=== PATIENT | male | born 1940 | race Caucasian/White ===

== ENCOUNTER 2017-03-14 10:17 | Emergency (ER) | payer OTHER ==
[2017-03-14 10:27] VITALS: BMI 31.0
[2017-03-14] MEDS ORDERED: ASPIRIN 81 MG CHEWABLE TABLETS PO ONE (10:44)
--- NOTE | 2017-03-14 10:44 | PDOC ---
History of Present Illness - General History Source: Patient Exam Limitations: No Limitations - History of Present Illness Initial Comments: 03/14/17 11:15 The patient is a 77 year old male with significant past medical history of hypertension and hyperlipidemia who presents to the ED for 4 days of worsening cough with wheezing and chest congestion. Patient reports he recently returned from [place] (via plane) yesterday. States he initially developed some nasal congestion and coughing 4 days ago and now has cough with wheezing and chest congestion. States his symptoms are consistent with his previous bronchitis and has been treated with nebulizer and prednisone in the past. Denies history of asthma or COPD. Denies fever, chills, diaphoresis, chest pain, jaw pain, shoulder pain, arm pain, palpitations, nausea, or vomiting. Denies abdominal pain or diarrhea. Patient admits to smoking cigars in the past. Allergies: NKDA Social History: Former cigar smoker. Past Surgical History: fatty tissue cyst removed left leg PCP: Dr. Chirag Mejia <Catherine Robles - Last Filed: 03/14/17 11:15> <Lenin Crawley - Last Filed: 03/14/17 13:42> - General Chief Complaint: Chest Pain Stated Complaint: CHEST PAIN Time Seen by Provider: 03/14/17 10:32 Past History <Catherine Robles - Last Filed: 03/14/17 11:15> - Past Medical History HTN: Yes Hypercholesterolemia: Yes Suicide Attempt (Hx): No - Immunization History Immunization Up to Date: Yes - Psycho/Social/Smoking Cessation Hx Anxiety: No Suicidal Ideation: No Smoking Status: No Smoking History: Never smoked Have you smoked in the past 12 months: No Number of Cigarettes Smoked Daily: 0 Information on smoking cessation initiated: No Hx Alcohol Use: No Substance Use Type: Alcohol <Lenin Crawley - Last Filed: 03/14/17 13:42> - Past Medical History Allergies/Adverse Reactions: Allergies Allergy/AdvReac Type Severity Reaction Status Date / Time No Known Allergies Allergy Verified 03/14/17 10:28 Home Medications: Ambulatory Orders Atorvastatin Ca [Lipitor] 20 mg PO HS 02/24/13 Aspirin Coated [Ecotrin -] 81 mg PO DAILY #30 tablet.ec 10/19/14 Dutasteride [Avodart] 0.5 mg PO DAILY 02/24/15 Tamsulosin HCl 0.4 mg PO DAILY 02/24/15 Albuterol Sulfate Inhaler - [Ventolin HFA Inhaler -] 1 - 2 inh PO QID PRN #1 inhaler 03/14/17 Azithromycin [Zithromax 250mg Tablets -] 250 mg PO UTDICT #6 tab 03/14/17 Methylprednisolone [Medrol Dose Marc] 4 mg PO ASDIR #21 tablet 03/14/17 Review of Systems - Review of Systems Constitutional: No: Chills, Fever HEENTM: Yes: Nose Congestion Respiratory: Yes: Cough Cardiac (ROS): No: Chest Pain, Edema, Lightheadedness ABD/GI: No: Vomiting All Other Systems: Reviewed and Negative <Lenin Crawley - Last Filed: 03/14/17 13:42> *Physical Exam - Vital Signs Last Vital Signs Temp Pulse Resp BP Pulse Ox 98.4 F 56 L 18 144/70 97 03/14/17 10:24 03/14/17 10:24 03/14/17 10:24 03/14/17 10:24 03/14/17 10:24 - Physical Exam Comments: 03/14/17 11:15 GENERAL: The patient is awake, alert, and fully oriented, in no acute distress. HEAD: Normal with no signs of trauma. EYES: Pupils equal, round and reactive to light, extraocular movements intact, sclera anicteric, conjunctiva clear with no pallor. ENT: Ears normal, nares patent, oropharynx clear without exudates. Moist mucous membranes. NECK: Normal range of motion, supple without lymphadenopathy, JVD, or masses. LUNGS: No respiratory distress. Coarse breath sounds at the right base with scant and expiratory wheezing throughout. Good air entry. No accessory muscle use. No conversation dyspnea. HEART: Regular rate and rhythm, normal S1 and S2 without murmur or rub. ABDOMEN: Soft/nontender/nondistended. BS wnl. No guarding or rebound. No palpable masses. No hepatosplenomegaly. EXTREMITIES: Normal range of motion. Trace pretibial ankle edema bilaterally. No calf tenderness. No clubbing or cyanosis. No cords, erythema, or tenderness. NEUROLOGICAL: Cranial nerves II through XII grossly intact. Normal speech, normal gait. PSYCH: Normal mood, normal affect. SKIN: Warm, Dry, normal turgor, no rashes or lesions noted. <Catherine Robles - Last Filed: 03/14/17 11:15> - Vital Signs Last Vital Signs Temp Pulse Resp BP Pulse Ox 98.4 F 56 L 18 144/70 97 03/14/17 10:24 03/14/17 10:24 03/14/17 10:24 03/14/17 10:24 03/14/17 10:24 <Lenin Crawley - Last Filed: 03/14/17 13:42> Heart Score/ECG Review #1 ECG reviewed & interpreted by me at: 10:25 General ECG Interpretation: Sinus Rhythm, Normal Rate (54), Normal Intervals, No acute ischemic changes (isolated q in III) <Lenin Crawley - Last Filed: 03/14/17 13:42> ED Treatment Course - LABORATORY CBC & Chemistry Diagram: 03/14/17 11:18 03/14/17 11:18 <Lenin Crawely - Last Filed: 03/14/17 13:42> Medical Decision Making - Medical Decision Making 03/14/17 11:08 A portion of this note was documented by scribe services under my direction. I have reviewed the details of the note, within reason, and agree with the documentation with the following case summary and management plan written by me. Very healthy and high functioning 77-year-old male with history of well- controlled hypertension and high cholesterol but no underlying lung disease presents with 3-4 days of worsening chest congestion with cough typical of his past bronchitis. Symptoms started with some nasal congestion, progressed to dry cough without any persistent chest pain or respiratory distress, no fevers or chills. States feels like his typical acute bronchitis, normally treated with azithromycin and occasionally with steroids. At baseline, has no cardio pulmonary issues. Signs normal, O2 sat normal. Very well-appearing, no respiratory distress Course breath sounds at the right base, otherwise scant end expiratory wheezing with good air entry 77-year-old male with likely bronchitis exacerbation, elderly viral. Well- appearing, no respiratory distress. Rule out pneumonia. EKG is nonischemic Will check basic labs and chest x-ray Trial of nebulizers and steroids Discharge with above is within normal limits 03/14/17 13:36 Remains well appearing with sinus alma delia. Feels better after nebs, cxr clear. no leukocytosis, trop negative. Will proceed with d/c plan on zpack, steroid course, and pump. Has f/u with his PMD, understands return criteria. <Lenin Crawley - Last Filed: 03/14/17 13:42> *DC/Admit/Observation/Transfer - Attestations Scribe Attestion: 03/14/17 11:16 Documentation prepared by Catherine Robles, acting as biomedical specialist for Lenin Crawley MD, /DO. <Catherine Robles - Last Filed: 03/14/17 11:15> <Lenin Crawley - Last Filed: 03/14/17 13:42> Diagnosis at time of Disposition: Bronchitis - Discharge Dispostion Disposition: HOME Condition at time of disposition: Improved - Prescriptions Prescriptions: Methylprednisolone [Medrol Dose Marc] 4 mg PO ASDIR #21 tablet Albuterol Sulfate Inhaler - [Ventolin HFA Inhaler -] 1 - 2 inh PO QID PRN #1 inhaler PRN Reason: Cough Azithromycin [Zithromax 250mg Tablets -] 250 mg PO UTDICT #6 tab - Patient Instructions Printed Discharge Instructions: DI for Acute Bronchitis Additional Instructions: Activity as tolerated. Stay hydrated. Blood tests performed today showed no acute abnormalities, a chest x-ray showed no pneumonia. Your symptoms are likely due to an acute bronchitis. Take azithromycin and Medrol Dosepak as prescribed, take albuterol pump inhalations as needed. Continue your medications as previously prescribed by your physician. You should follow up with your primary doctor as soon as possible regarding today's emergency department visit. Return to the emergency department for any new or concerning symptoms, particularly fevers or chills, chest pain or difficulty breathing, productive cough or feeling unwell.
[2017-03-14] MEDS ORDERED: ASPIRIN 81 MG CHEWABLE TABLETS ONE (10:48)
[2017-03-14] MEDS ORDERED: ALBUTEROL SO4 2.5/IPRATROPIUM 0.5 INH SOL 3 ML VIAL.NEB. NEB ONE ×2 (11:02→11:22)
[2017-03-14] MEDS ORDERED: predniSONE 20 MG TABLET (UD) PO ONE (11:02)
[2017-03-14] MEDS ORDERED: predniSONE 20 MG TABLET (UD) ONE (11:21)
[2017-03-14 11:30] LABS: EOSINOPHIL 2.6 % (0-4.5); MCH 29.9 pg (25.7-33.7); MCHC 35.3 g/dl (32.0-35.9); MEAN CELL VOLUME 84.7 fl (80-96); MEAN PLT VOLUME 8.1 fl (7.5-11.1); NEUTROPHILS 65.8 % (42.8-82.8); PLATELET COUNT 141 K/MM3 (134-434); RDW 14.3 % (11.9-15.9); WHITE BLOOD COUNT 9.1 K/mm3 (4.0-10.0)
[2017-03-14 11:50] LABS: INR 1.01 (0.82-1.09); PROTHROMBIN TIME (PATIENT) 11.1 SEC (9.98-11.88)
[2017-03-14 12:03] LABS: ALBUMIN 3.6 g/dl (3.4-5.0); ANION GAP 7 (8-16); BILIRUBIN,TOTAL 0.5 mg/dL (0.2-1.0); CALCIUM 8.7 mg/dL (8.5-10.1); CO2 25 mmol/L (21-32); CREATININE 1.1 mg/dL (0.7-1.3); GLUCOSE,RANDOM 101 mg/dL (74-106); MAGNESIUM 2.1 mg/dL (1.8-2.4); SGOT/AST 19 U/L (15-37); SGPT/ALT 26 U/L (12-78); TOT PROT 6.5 g/dl (6.4-8.2)
[2017-03-14 12:07] LABS: ALK PHOS 71 U/L (45-117); TROPONIN I < 0.02 ng/ml (0.00-0.05)
--- NOTE | 2017-03-14 12:39 | EKG ---
Test Reason : Blood Pressure : / mmHG Vent. Rate : 054 BPM Atrial Rate : 054 BPM P-R Int : 206 ms QRS Dur : 100 ms QT Int : 430 ms P-R-T Axes : 054 013 015 degrees QTc Int : 407 ms SINUS BRADYCARDIA OTHERWISE NORMAL ECG WHEN COMPARED WITH ECG OF 24-FEB-2015 09:03, NO SIGNIFICANT CHANGE WAS FOUND Confirmed by MK JIMÉNEZ MD ([id number]) on 03/14/2017 12:38:55 PM Referred By: Confirmed By:MK JIMÉNEZ MD
[2017-03-14 14:13] VITALS: BP 117/72; PULSE 57; TEMP 97.9
== END 2017-03-14 14:12 | disposition home or self-care (01) ==
LOC: JER 10:17
PROC: 3E0F7GC Introduction of Other Therapeutic Substance into Respiratory Tract, Via Natural or Artificial Opening (ICD-10-PCS; principal; 2017-03-14)
DX: J20.9 Acute bronchitis, unspecified (principal); I10 Essential (primary) hypertension
CPT/HCPCS: 36415; 71020-TC; 80053; 82550; 83735; 84484; 85025; 85610; 93005; 93010; 94640; 99285-25

== ENCOUNTER 2017-05-11 23:52 | Emergency (ER) | payer OTHER ==
[2017-05-12 00:27] VITALS: BP 151/67; PULSE 55; TEMP 97.9; BMI 30.2
[2017-05-12] MEDS ORDERED: SODIUM CHLORIDE 1,000 ML IV STA (02:34)
--- NOTE | 2017-05-12 02:34 | PDOC ---
History of Present Illness - General History Source: Patient Exam Limitations: No Limitations - History of Present Illness Initial Comments: 05/12/17 02:39 The patient is a 77 year old male with significant past medical history of hypertension and hyperlipidemia who presents to the ED for 2 days of constipation. Patient reports he has not had a bowel movement in the past 2 days. He also has complaints of diffuse abdominal pain. Denies nausea, vomiting , or diarrhea. States taking 2 [facility] medication for constipation without improvement. Denies family h/o of colon CA The patient denies fever, chills, cough, SOB, chest pain, and palpitations. Allergies: NKDA Social History: Former cigar smoker. Past Surgical History: fatty tissue cyst removed left leg PCP: Dr. Chirag Mejia <Catherine Robles - Last Filed: 05/12/17 05:14> - General History Source: Patient <JaydenBrooks ruiz - Last Filed: 05/12/17 05:20> - General Chief Complaint: Pain Stated Complaint: STOMACH PAIN Time Seen by Provider: 05/12/17 02:21 Past History <Catherine Robles - Last Filed: 05/12/17 05:14> - Past Medical History HTN: Yes Hypercholesterolemia: Yes Suicide Attempt (Hx): No - Immunization History Immunization Up to Date: Yes - Psycho/Social/Smoking Cessation Hx Anxiety: No Suicidal Ideation: No Smoking Status: No Smoking History: Never smoked Have you smoked in the past 12 months: No Number of Cigarettes Smoked Daily: 0 Information on smoking cessation initiated: No Hx Alcohol Use: Yes Drug/Substance Use Hx: No Substance Use Type: Alcohol <Brooks Corea - Last Filed: 05/12/17 05:20> - Past Medical History Allergies/Adverse Reactions: Allergies Allergy/AdvReac Type Severity Reaction Status Date / Time No Known Allergies Allergy Verified 05/12/17 00:25 Home Medications: Ambulatory Orders Atorvastatin Ca [Lipitor] 20 mg PO HS 02/24/13 Aspirin Coated [Ecotrin -] 81 mg PO DAILY #30 tablet.ec 10/19/14 Dutasteride [Avodart] 0.5 mg PO DAILY 02/24/15 Tamsulosin HCl 0.4 mg PO DAILY 02/24/15 Losartan Potassium [Cozaar] 100 mg PO DAILY 05/12/17 Review of Systems - Review of Systems Able to Perform ROS?: Yes Comments:: 05/12/17 02:39 CONSTITUTIONAL: Absent: fever, no chills, no fatigue EYES: Absent: visual changes ENT: Absent: ear pain, no sore throat CARDIOVASCULAR: Absent: chest pain, no palpitations RESPIRATORY: Absent: cough, no SOB GI: +diffuse abdominal pain, constipation Absent: no nausea, no vomiting, no diarrhea GENITOURINARY: Absent: dysuria, no frequency, no hematuria MUSCULOSKELETAL: Absent: back pain, no arthralgia, no myalgia SKIN: Absent: rash NEURO: Absent: headache <Catherine Robles - Last Filed: 05/12/17 05:14> *Physical Exam - Vital Signs Last Vital Signs Temp Pulse Resp BP Pulse Ox 97.9 F 55 L 14 151/67 94 L 05/12/17 00:25 05/12/17 00:25 05/12/17 00:25 05/12/17 00:25 05/12/17 00:25 - Physical Exam Comments: 05/12/17 02:39 GENERAL: Well-appearing, well-nourished. No apparent distress. HEENT: Normocephalic, atraumatic. PERRL, EOM intact. CARDIOVASCULAR: Normal S1, S2. Regular rate and rhythm. PULMONARY: Clear to auscultation bilaterally. ABDOMEN: Obese. Soft, non-distended, non-tender. No rebound or guarding. EXTREMITIES: Normal ROM in all four extremities. No gross deformities. SKIN: Warm, dry. No rash NEUROLOGICAL: No focal neurological deficits. <Catherine Robles - Last Filed: 05/12/17 05:14> - Vital Signs Last Vital Signs Temp Pulse Resp BP Pulse Ox 97.9 F 55 L 14 151/67 94 L 05/12/17 00:25 05/12/17 00:25 05/12/17 00:25 05/12/17 00:25 05/12/17 00:25 <Brooks Corea - Last Filed: 05/12/17 05:20> ED Treatment Course - LABORATORY CBC & Chemistry Diagram: 05/12/17 03:30 05/12/17 03:30 - RADIOLOGY Radiograph Interpretation: 05/12/17 05:14 EXAM: CT ABDOMEN AND PELVIS WITH CONTRAST Reviewed by Imaging wagon person: No bowel obstruction, colitis, free fluid or free air. Normal appendix. Diverticulosis colon without acute diverticulitis. Unremarkable pancreas, kidneys and gallbladder. Small cyst or hemangioma liver dome. <Catherine Robles - Last Filed: 05/12/17 05:14> - LABORATORY CBC & Chemistry Diagram: 05/12/17 03:30 05/12/17 03:30 <Brooks Corea - Last Filed: 05/12/17 05:20> Medical Decision Making - Medical Decision Making 05/12/17 05:18 Dr. Corea: The scribe's documentation has been prepared under my direction and personally reviewed by me in its entirery. I confirm that the note above accurately reflects all work, treatment, procedures, and medical decision making performed by me. Ct scan is negative fro SBO. Pt will be given single dose Lactulose. Pt advised to increase free water, fruits and vegetables. and discharged <Brooks Corea - Last Filed: 05/12/17 05:20> *DC/Admit/Observation/Transfer - Attestations Scribe Attestion: 05/12/17 02:39 Documentation prepared by Catherine Robles, acting as ophthalmic medical technologist for Brooks Corea DO. <Catherine Robles - Last Filed: 05/12/17 05:14> - Discharge Dispostion Admit: No <Brooks Corea - Last Filed: 05/12/17 05:20> Diagnosis at time of Disposition: Constipation Qualifiers: Constipation type: other constipation type Qualified Code(s): K59.09 - Other constipation - Discharge Dispostion Disposition: HOME Condition at time of disposition: Stable - Patient Instructions Printed Discharge Instructions: DI for Constipation, Increased Dietary Fiber May Improve Constipation Conditions With Pelvic Gio
[2017-05-12 03:40] LABS: BASOPHIL 0.8 % (0-2.0); EOSINOPHIL 2.3 % (0-4.5); MCHC 34.1 g/dl (32.0-35.9); MEAN CELL VOLUME 85.1 fl (80-96); MEAN PLT VOLUME 8.3 fl (7.5-11.1); NEUTROPHILS 56.4 % (42.8-82.8); PLATELET COUNT 160 K/MM3 (134-434); RDW 14.4 % (11.9-15.9); WHITE BLOOD COUNT 8.2 K/mm3 (4.0-10.0)
[2017-05-12 04:06] LABS: ALBUMIN 3.7 g/dl (3.4-5.0); ANION GAP 10 (8-16); BILIRUBIN,TOTAL 0.8 mg/dL (0.2-1.0); CALCIUM 8.4 mg/dL (8.5-10.1); CO2 25 mmol/L (21-32); CREATININE 1.3 mg/dL (0.7-1.3); GLUCOSE,RANDOM 97 mg/dL (74-106); SGOT/AST 15 U/L (15-37); SGPT/ALT 22 U/L (12-78); TOT PROT 6.1 g/dl (6.4-8.2)
[2017-05-12 04:07] LABS: ALK PHOS 60 U/L (45-117)
[2017-05-12] MEDS ORDERED: LACTULOSE 20 GM/30 ML UDC (FOR ORAL USE ONLY) PO ONE (05:13)
[2017-05-12] MEDS ORDERED: SODIUM PHOSPHATE/NA BIPHOS 133 ML ENEMA PR ONE ×2 (05:14→05:24)
[2017-05-12] MEDS ORDERED: LACTULOSE 20 GM/30 ML UDC (FOR ORAL USE ONLY) ONE ×2 (05:20→05:24)
== END 2017-05-12 05:31 | disposition home or self-care (01) ==
LOC: JER 23:52
PROC: 3E0337Z Introduction of Electrolytic and Water Balance Substance into Peripheral Vein, Percutaneous Approach (ICD-10-PCS; principal; 2017-05-11)
DX: K59.09 Other constipation (principal); I10 Essential (primary) hypertension; E78.00 Pure hypercholesterolemia, unspecified
CPT/HCPCS: 36415; 74176-TC; 80053; 85025; 99282-25

== ENCOUNTER 2019-02-23 09:36 | Emergency (ER) | payer OTHER | END 2019-02-23 10:42 | disposition home or self-care (01) | LOC: JER 09:36 → JERFT 10:42 ==